=== PATIENT | female | born 2000 | race Caucasian/White ===

== ENCOUNTER 2020-09-06 03:37 | Outpatient (CLI) | payer BC, SELFPAY ==
[2020-09-07 19:19] LABS: COVID-19 RT-PCR UVMMC Result Negative (Negative)
== END 2020-09-06 03:57 ==
PROVIDERS: PCP Family Medicine; Visit Provider Family Medicine
DX: Z11.59 Encounter for screening for other viral diseases (principal); Z02.0 Encounter for examination for admission to educational institution
CPT/HCPCS: U0003

== ENCOUNTER 2020-11-27 19:54 | Emergency (ER) | payer BC, SELFPAY ==
[2020-11-27 20:01] VITALS: BP 115/91; PULSE 94; RESP 20; TEMP 37.4; O2SAT 97
--- NOTE | 2020-11-27 20:16 | ED.GENADUL_ITS ---
Discharge Plan Disposition Patient Disposition: HOME Condition: Good Discharge Details Clinical Impression: Asthma exacerbation, mild Primary Care Provider: Tanya Trujillo ED Provider: Jt Burns Home Meds and New Rx's Prescriptions: Continued albuterol sulfate 2.5 mg /3 mL (0.083 %) solution for nebulization 2.5 mg IH BID PRNRF: 0 multivitamin [Daily Multiple] 1 EACH tablet 1 ea PO DAILY RF: 0 loratadine 10 MG tablet 10 mg PO DAILY Qty: 30 RF: 0 albuterol sulfate [ProAir HFA] 90 mcg/actuation HFA aerosol inhaler 2 puff Inhalation Q4H PRN Qty: 18 RF: 12 budesonide-formoterol [Symbicort] 80-4.5 mcg/actuation HFA aerosol inhaler 2 puff IH BID Qty: 10.2 RF: 6 montelukast 10 mg tablet 10 mg PO DAILY Qty: 90 RF: 5 Discharge Instructions Additional Instructions: Use albuterol as needed and restart maintenance medications tomorrow when you get back to school. Return to ED for any increased difficulty breathing, fever, chest pain. Follow-up with PCP as needed. Referrals: Tanya Trujillo MD, [place] [Primary Care Provider] - Medical Decision Making Patient with normal room air pulse ox. Decent air exchange and minimal wheezing on exam. However, has no access to her medications including her rescue inhaler. Given albuterol inhaler here for use tonight. Return to school and will have access to her medications in the morning. Follow-up with PCP as needed. Return to ED if any worsening symptoms. HPI General Mode of arrival: ambulatory . Date/Time Provider Initiated Documentation: 11/27/20 20:16 . Limitations to Documentation: no limitations . Information obtained by: patient and RN notes reviewed . HPI Narrative: Patient presents to ED with wheezing and tightness in her chest with history of asthma. She is typically on Symbicort twice a day and albuterol as needed but almost uses it every day prior to running. 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 She has been without medication for 4 days but is going back to school tomorrow. However, between her mother smoking and the house hold pets, she felt that she was not going to make it through the night without getting worse. She has not been ill. No fever or cough. Feels a little short of breath. No chest pain. Related Data Home Medications Medication Instructions Recorded Confirmed loratadine 10 mg PO DAILY #30 tab-cap 01/03/17 11/27/20 multivitamin [Daily Multiple] 1 ea PO DAILY 01/03/17 05/06/20 albuterol sulfate 2.5 mg IH BID PRN ml 05/06/20 05/06/20 albuterol sulfate 90 mcg/actuation 2 puff INHALATION Q4H PRN #18 gm 08/13/20 11/27/20 aerosol inhaler budesonide-formoterol HFA 80 2 puff IH BID #10.2 gm 08/16/20 11/27/20 mcg-4.5 mcg/actuation aerosol inhaler montelukast 10 mg tablet 10 mg PO DAILY #90 tab 08/16/20 11/27/20 Previous Rx's Medication Instructions Recorded albuterol sulfate 90 mcg/actuation 2 puff INHALATION Q4H PRN #18 gm 08/13/20 aerosol inhaler budesonide-formoterol HFA 80 2 puff IH BID #10.2 gm 08/16/20 mcg-4.5 mcg/actuation aerosol inhaler montelukast 10 mg tablet 10 mg PO DAILY #90 tab 08/16/20 Allergies Allergy/AdvReac Type Severity Reaction Status Date / Time dog dander Allergy Unverified 11/27/20 20:03 General Stated Complaint: RespSymp MIKI: 3 Review of Systems Narrative: As documented in HPI otherwise negative as below. Const: no fever, chills, weakness Resp: no cough, pleuritic pain CV: no CP, diaphoresis, edema, syncope GI: no abdominal pain, nausea, vomiting, diarrhea Neuro: no headache, numbness, focal weakness, confusion PFSH Medical History Exercise-induced asthma UTI (urinary tract infection) Family History (Updated 05/04/20 @ 13:32 by Lovely Weir) Father , 50's Suicide Hypertension Depression Maternal Grandfather No problems noted. Paternal Grandfather Asthma Maternal Grandmother , 73 No problems noted. Paternal Grandmother No problems noted. Other Personal history of malignant neoplasm Social History Smoking/Tobacco Use Status: Never Smoking risk assessment performed?: Yes Alcohol Intake: current Alcohol Intake frequency: a few times a month Alcohol type: beer, wine and hard liquor Drug use: Never Substance use type: does not use Caregiver/Support person: No Household members: family and friend(s) Housing: house Communication Needs: Corrective Lenses Do you need help understanding health information?: Never Pets and animals: Yes Pets and animals: cat(s) Sexually active: Yes Do you think of yourself as: bisexual Current gender identity: female What is your relationship status?: never How often do you talk on the phone with friends or family?: three or more times per week How often do you get together with friends or relatives?: three or more times per week How often do you attend christianity or synagogue services?: 1-3 times per year Do you belong to any clubs or organized social groups?: yes Panel score (0-1 are the most socially isolated patients): 2 What type of physical activity do you participate in: other Details: dance,track Duration: 60-90 minutes/day Frequency: daily Mary/Mandaen: Islam Special mary needs: No Seatbelt use: always Helmet use: Yes Helmet use: always Drive intox or ride w/intox batch mixing truck driver: No Do you feel safe at home: Yes Do you feel safe in your relationship?: Yes Exam Narrative Exam Narrative: Const: WDWN female in NAD. HEENT: NC/AT. Normal facial exam. Eyes: Normal conjunctiva and sclera. Neck: Supple. Trachea midline. Lungs: Normal respiratory effort. Lungs are clear. Cor: RRR without murmur/gallop. Neuro: A+O x 3. Normal speech, mentation, gait. Cranial nerves II - XII grossly intact. No gross motor or sensory deficit. Skin: Warm and dry without rash. Course Vital Signs Vital signs: Vital Signs Temperature 99.3 F 11/27/20 20:01 Pulse 94 H 11/27/20 20:01 Respiratory Rate 20 11/27/20 20:01 Blood Pressure 115/91 H 11/27/20 20:01 Pulse Oximetry 97 11/27/20 20:01 Temperature 99.3 F 11/27/20 20:01 Temperature Source Tympanic 11/27/20 20:01 Pulse 94 H 11/27/20 20:01 Respiratory Rate 20 11/27/20 20:01 Respiratory Effort 11/27/20 20:04 Blood Pressure 115/91 H 11/27/20 20:01 Blood Pressure Position Sitting 11/27/20 20:01 Pulse Oximetry 97 11/27/20 20:01 Oxygen Delivery Method Room Air 11/27/20 20:01 Oxygen Flow Rate 0 11/27/20 20:01 Pain Level 0 11/27/20 20:01
[2020-11-27] MEDS: Albuterol HFA 8 GM 60 PUFF INH IH (20:24)
== END 2020-11-27 20:30 | disposition home or self-care (01) ==
PROVIDERS: Emergency Provider Emergency Medicine; PCP Family Medicine
DX: J45.901 Unspecified asthma with (acute) exacerbation (principal); Z77.22 Contact with and (suspected) exposure to environmental tobacco smoke (acute) (chronic)
CPT/HCPCS: 99283

== ENCOUNTER 2021-04-05 14:26 | Outpatient (REF) | payer BC, SELFPAY ==
--- NOTE | 2021-04-05 13:40 | PAPFT_PTH ---
PATIENT: Laya Pruitt LOC: [facility] U#:[id number] AGE/SX: 20/F ROOM: RE04/05/[address]: Tanya Trujillo MD, [place] : 2000 BED: DIS: 04/05/2021 SPEC #: [id number] RECD: 04/05/21 17:53 STATUS: ROGER REGerda #: [id number] MARY: 04/05/21 13:[address]: Tanya Trujillo DEPT: [facility] Cytology RECD BY: Rachel Brice Tissues: 1 - CX/ENDOCX FOR PAP SMEARS Procedures: PAP THIN PREP/[facility] Screening Comments: [id number] (CHLAMYDIA/GC)
[2021-04-06 15:19] LABS: Chlamydia Result Negative (Negative); GC Result Negative (Negative)
== END 2021-04-05 14:27 | disposition home or self-care (01) ==
LOC: LBN 14:26
PROVIDERS: PCP Family Medicine; Visit Provider Family Medicine
DX: R30.0 Dysuria (principal); Z12.4 Encounter for screening for malignant neoplasm of cervix; Z11.3 Encounter for screening for infections with a predominantly sexual mode of transmission
CPT/HCPCS: 87491; 87591; 88142; 87480; 87510; 87660